=== PATIENT | female | born 1955 | race Caucasian/White ===

== ENCOUNTER → 2016-12-20 | Outpatient (CLI) | payer MEDICARE, OTHER ==
[2016-12-20 10:58] LABS: HEMOGLOBIN 15.4 g/dL (11.7-16.4)
[2016-12-20 11:14] LABS: BLOOD UREA NITROGEN 16 mg/dL (7-18)
[2016-12-20 11:18] LABS: ASPARTATE AMINO TRANSFERASE 27 U/L (15-37)
[2016-12-21 12:06] LABS: CREATININE URINE 47.8 mg/dL (Not Estab.)
== END | disposition home or self-care (01) ==
LOC: LAB 10:30
PROVIDERS: ATTEND Genetic Counselor, MS
DX: E11.65 Type 2 diabetes mellitus with hyperglycemia (principal)
CPT/HCPCS: 36415; 80053; 80061; 82043; 82570; 83036; 85025